=== PATIENT | female | born 1995 | race Caucasian/White ===

== ENCOUNTER 2019-07-20 10:06 | Emergency (ER) | payer OTHER ==
[~2019-07-20] VITALS: Ht 162.6 cm; Wt 53.0 kg
[2019-07-20 10:08] VITALS: BP 117/73
[2019-07-20 10:52] LABS: URINE HCG NEGATIVE (NEG)
[2019-07-20 10:55] LABS: CLARITY,URINE SLIGHTLY CLOUDY (Clear); COLOR,URINE YELLOW (Yellow); GLUCOSE, URINE NEGATIVE (Neg); KETONES,URINE NEGATIVE (Neg); LEUKOCYTE ESTERASE ,URINE NEGATIVE (Neg); NITRITES, URINE NEGATIVE (Neg); OCCULT BLOOD,URINE NEGATIVE (Neg); PH,URINE 6.5 (4.8-8.0); PROTEIN,URINE NEGATIVE (Neg); UROBILINOGEN,URINE 0.2 E.U/dL (0.2-1.0)
[2019-07-20 10:58] LABS: UA COLLECTION TYPE CLN CATCH MIDSTREAM
[2019-07-20] MEDS ORDERED: FLUC150T66 PO (11:31)
[2019-07-20 11:38] LABS: BACTERIA,URINE 1+ /HPF (Neg); MUCUS STRANDS FEW /LPF (Neg); RBC,URINE 0-2 /HPF (0-2); SQUAMOUS EPITHELIAL CELL,UR MANY /LPF (FEW); WBC,URINE 0-4 /HPF (0-4)
== END 2019-07-20 11:44 | disposition home or self-care (01) ==
LOC: ER 10:07
DX: B37.3 Candidiasis of vulva and vagina (principal); Z87.440 Personal history of urinary (tract) infections
CPT/HCPCS: 81001; 81025; 99283

== ENCOUNTER 2019-07-26 11:16 | Emergency (ER) | payer OTHER ==
[~2019-07-26] VITALS: Ht 160.5 cm; Wt 53.0 kg
[~2019-07-26 11:16] MED LIST: FLUC150T66 PO
[2019-07-26 12:01] LABS: CLARITY,URINE CLEAR (Clear); COLOR,URINE YELLOW (Yellow); GLUCOSE, URINE NEGATIVE (Neg); KETONES,URINE NEGATIVE (Neg); LEUKOCYTE ESTERASE ,URINE NEGATIVE (Neg); NITRITES, URINE NEGATIVE (Neg); OCCULT BLOOD,URINE SMALL (Neg); PH,URINE 6.5 (4.8-8.0); PROTEIN,URINE NEGATIVE (Neg); UA COLLECTION TYPE CLN CATCH MIDSTREAM; URINE HCG NEGATIVE (NEG); UROBILINOGEN,URINE 0.2 E.U/dL (0.2-1.0)
[2019-07-26] MEDS ORDERED: FLUC150T66 PO (12:14)
[2019-07-26 12:21] VITALS: BP 107/71
[2019-07-26 12:23] LABS: SQUAMOUS EPITHELIAL CELL,UR FEW /LPF (FEW)
[2019-07-26 12:24] LABS: BACTERIA,URINE FEW /HPF (Neg); RBC,URINE 0-2 /HPF (0-2); WBC,URINE 0-4 /HPF (0-4)
== END 2019-07-26 12:44 | disposition home or self-care (01) ==
LOC: ER 11:17
DX: B37.3 Candidiasis of vulva and vagina (principal); Z87.440 Personal history of urinary (tract) infections
CPT/HCPCS: 36415; 81001; 81025; 87491; 99283

== ENCOUNTER 2020-07-06 17:04 | Emergency (ER) | payer OTHER ==
[~2020-07-06] VITALS: Ht 157.5 cm; Wt 53.0 kg
[2020-07-06] MEDS ORDERED: LIDOcaine 40mg/ml topical solution MM ONE (17:50)
[2020-07-06] MEDS ORDERED: TETanus/Pertussis (Acell)/Diphther VAC/PF (Tdap-Adult) 0.5ml syringe IMVAC ONE (17:50)
[2020-07-06] MEDS ORDERED: CEPH500C5 PO (18:45)
--- NOTE | 2020-07-06 19:12 | NUR ---
orders completed fopr dressing and left knee immobilizer CSM intact left knee and crutches fittedPatietn tolerated well.
[2020-07-06 19:25] VITALS: BP 128/78
== END 2020-07-06 19:26 | disposition home or self-care (01) ==
LOC: ER 17:06
DX: S05.12XA Contusion of eyeball and orbital tissues, left eye, initial encounter (principal); S80.212A Abrasion, left knee, initial encounter; L03.116 Cellulitis of left lower limb; V00.131A Fall from skateboard, initial encounter; Y93.89 Activity, other specified; Y92.89 Other specified places as the place of occurrence of the external cause; Y99.9 Unspecified external cause status
CPT/HCPCS: 72040; 73564; 90471; 90715; 97597; 99284; J2001; 29505

== ENCOUNTER 2020-07-10 18:09 | Emergency (ER) | payer OTHER ==
[~2020-07-10] VITALS: Ht 160 cm; Wt 53.0 kg
[~2020-07-10 18:09] MED LIST changes: +CEPH500C5 PO; -FLUC150T66 PO
[2020-07-10 18:13] VITALS: BP 116/71
[2020-07-10] MEDS ORDERED: BACI1PAC7 TOP (18:37)
== END 2020-07-10 18:50 | disposition home or self-care (01) ==
LOC: ER 18:10
DX: S80.212D Abrasion, left knee, subsequent encounter (principal); Z87.440 Personal history of urinary (tract) infections; Z79.2 Long term (current) use of antibiotics; X58.XXXD Exposure to other specified factors, subsequent encounter
CPT/HCPCS: 99282